=== PATIENT | female | born 1950 | race Caucasian/White ===

== ENCOUNTER 2016-07-10 10:13 | Emergency (ER) | payer SELFPAY ==
[2016-07-10 11:10] LABS: % IMMATURE GRANULYOCYTES 0.4 % (0.0-1.1); ABSOLUTE IMMATURE GRANULOCYTES 0.03 10^3/uL (0.00-0.10); ADD DIFF? NO; ADD MORPH? NO; ADD SCAN? NO; ATYPICAL LYMPHOCYTE FLAG 0 (0-99); FRAGMENT RBC FLAG 0 (0-99); HEMATOCRIT 44.2 % (38.0-47.0); HEMOGLOBIN 14.7 g/dL (12.6-16.3); LEFT SHIFT FLG 0 (0-99); LIPEMIA HEMOLYSIS FLAG 80 (0-99); MEAN CELL HEMOGLOBIN 29.9 pg (27.9-34.1); MEAN CELL HEMOGLOBIN CONCENTR. 33.3 g/dL (32.4-36.7); MEAN CELL VOLUME 89.8 fL (81.5-99.8); MEAN PLATELET VOLUME 10.3 fL (8.7-11.7); PLATELET CLUMPS FLAG 20 (0-99); PLATELET COUNT 272 10^3/uL (150-400); RED BLOOD CELL COUNT 4.92 10^6/uL (4.18-5.33); RED CELL DISTRIBUTION WIDTH 13.6 % (11.5-15.2)
[2016-07-10 11:16] LABS: ANION GAP 11 mEq/L (8-16); CARBON DIOXIDE 26 mEq/l (22-31); CHLORIDE 105 mEq/L (97-110); CREATININE 0.9 mg/dL (0.6-1.0); GLOMERULAR FILTRATION RATE > 60; GLUCOSE 116 mg/dL (70-100); POTASSIUM 4.2 mEq/L (3.5-5.2); SODIUM 142 mEq/L (134-144)
[2016-07-10] MEDS ORDERED: FAMOTIDINE 20 MG/2 ML SDV IVP ONE (11:24)
--- NOTE | 2016-07-10 11:29 | EDPHY ---
H & P Stated Complaint: chronic Hpylori, black stool, abd pain, been taking pepto Time Seen by Provider: 07/10/16 11:10 HPI/ROS: HPI: 65-year-old female presents to emergency department with chief concern abdominal pain, loose black stools. Symptoms onset a year ago. Developed acute abdominal discomfort in March. Tested positive for H pylori and treated with a total of 5 weeks of antibiotics and Flagyl. Finish course 2 days ago. Abdominal discomfort improved minimally. Reports soft stools, 6/10 generalized abdominal discomfort associated with bloating, worse on the left side, urinary frequency, nausea. Denies fever, chills, URI symptoms, dizziness , shortness of breath, chest pain, vomiting, diarrhea, urinary burning, back or flank pain, hematochezia, melena. 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 No personal history of GI disorders. Family history of ulcer. ROS:10 point review of systems is negative other than as stated in HPI Source: Patient Exam Limitations: No limitations - Personal History Current Tetanus/Diphtheria Vaccine: Yes Current Tetanus Diphtheria and Acellular Pertussis (TDAP): Yes Tetanus Vaccine Date: WITHIN 10 YRS - Medical/Surgical History Hx Asthma: No Hx Chronic Respiratory Disease: No Hx Diabetes: No Hx Cardiac Disease: No Hx Renal Disease: No Hx Cirrhosis: No Hx Alcoholism: No Hx HIV/AIDS: No Hx Splenectomy or Spleen Trauma: No Other PMH: pmh: hypothyroid, C/S. psh:high cholesterol, eye surgery - Family History Significant Family History: No pertinent family hx - Social History Smoking Status: Never smoked Alcohol Use: Rarely Drug Use: None - Physical Exam Exam: Vital signs reviewed by me General: Awake, alert, calm, cooperative. No acute distress. Head: Normalocephalic. Atraumatic. EENT: PERRLA. EOMI. No pallor or injection. Anicteric. No nystagmus. No injection. Neck: Supple, nontender. No lymphadenopathy. Full range of motion. No meningismus. Respiratory: Breathing unlabored. Breath sounds equal bilaterally and clear to auscultation. No adventitious sounds. CV: Chest nontender, atraumatic. Heart rate regular. No murmur, distal pulses 2+ bilaterally. Brisk cap refill all extremities. GI: Abdomen soft, diffusely tender throughout, worse left lower quadrant, right upper quadrant. No guarding. Negative Rubio sign. Bowel sounds normoactive and positive x4 quadrants. : No suprapubic tenderness. No CVA or flank tenderness. Neuro: Alert. Oriented x 3. Speech clear. Nonfocal cranial nerves throughout. Sensation intact all extremities. Skin: Skin warm, dry, intact. No rashes, abrasions, or lacerations. Skin turgor normal. Extremities: Full range of motion in all 4 extremities. Strength 5+ all extremities. Constitutional: Initial Vital Signs Temperature (C) 36.5 C 07/10/16 10:21 Heart Rate 83 07/10/16 10:21 Respiratory Rate 16 07/10/16 10:21 Blood Pressure 174/123 H 07/10/16 10:21 O2 Sat (%) 95 07/10/16 10:21 O2 Delivery Mode Room Air Allergies/Adverse Reactions: tetracycline [Tetracycline] Allergy (Verified 05/12/14 10:18) Home Medications: Medication Instructions Recorded Armor Thyroid 03/28/12 Atorvastatin Calcium [Lipitor 10 10 mg PO DAILY 03/28/12 mg (RX)] LORazepam [Ativan intensol 2 mg/ml 1 mg PO 03/28/12 (RX)] Natural Hrt 03/28/12 Fluconazole [Diflucan] 150 mg PO ONCE #1 tab 05/12/14 Triazolam [Halcion 0.25MG (RX)] 0.25 mg PO HS PRN #4 tab 05/12/14 Medical Decision Making - Diagnostics Imaging Results: Imaging Impressions Abdomen CT 07/10/16 11:23 Impression: 1. Constipation. 2. Chronic steatosis of the liver. 3. Progressive lumbar spondylosis between L4 and S1. 4. Incidental fibrous dysplasia of the sacrum. A message was left for Rosie Jefferson NP, at 07/10/2016 13:02 General information for patients regarding this examination can be found at [email or web address]. If you have questions or comments about this report, please contact me at (hospital) or [phone] (cell). Imaging: Discussed imaging studies w/ wood experimental mechanic Radiologist ED Course/Re-evaluation: A 65-year-old female presents to emergency department with abdominal pain that has been present intermittently for a year, more acutely over the past 3 months. Black stools began at the same time she started taking Pepto-Bismol. Recently finished antibiotic therapy and Flagyl for H pylori. She is being worked up by primary care for this chief concern. Reports loose stools but denies diarrhea. White count 7970. H&H 14.7/44.2. Stool for occult blood is negative. BUN and creatinine within normal. She has a chronically elevated AST/ALT due to chronic steatosis. Urinalysis shows no evidence of UTI. Stool panel is negative. CT is negative for findings that would not explain her abdominal pain. I have counseled this patient regarding her findings and need for prompt follow- up with primary care as well as GI. She and her are comfortable with this plan. They verbalized understanding and agreed to follow up. Differential Diagnosis: Differential diagnosis includes but is not limited to dyspepsia, C diff, irritable bowel, bowel obstruction, diverticulitis, UTI, ulcer, colitis - Data Points Laboratory Results: Laboratory Results 07/10/16 10:41 07/10/16 10:41 07/10/16 07/10/16 07/10/16 11:25 11:15 10:41 WBC RBC Hgb Hct MCV MCH MCHC RDW Plt Count MPV Neut % (Auto) Lymph % (Auto) [place] % (Auto) Eos % (Auto) Baso % (Auto) Nucleat RBC Rel Count Absolute Neuts (auto) Absolute Lymphs (auto) Absolute Monos (auto) Absolute Eos (auto) Absolute Basos (auto) Absolute Nucleated RBC Immature Gran % Immature Gran # Sodium Potassium Chloride Carbon Dioxide Anion Gap BUN Creatinine Estimated GFR Glucose Calcium Phosphorus Total Bilirubin 0.7 mg/dL mg/dL (0.1-1.4) Conjugated Bilirubin 0.5 mg/dL mg/dL (0.0-0.5) Unconjugated Bilirubin 0.2 mg/dL mg/dL (0.0-1.1) AST 74 IU/L H IU/L (14-46) ALT 80 IU/L H IU/L (9-52) Alkaline Phosphatase 76 IU/L IU/L (38-126) Total Protein 7.6 g/dL g/dL (6.3-8.2) Albumin 4.7 g/dL g/dL (3.5-5.0) Urine Color PALE YELLOW Urine Appearance CLEAR Urine pH 8.0 H (5.0-7.5) Ur Specific [place] 1.003 (1.002-1.030) Urine Protein NEGATIVE (NEGATIVE) Urine Ketones NEGATIVE (NEGATIVE) Urine Blood NEGATIVE (NEGATIVE) Urine Nitrate NEGATIVE (NEGATIVE) Urine Bilirubin NEGATIVE (NEGATIVE) Urine Urobilinogen NEGATIVE EU EU (0.2-1.0) Ur Leukocyte Esterase NEGATIVE (NEGATIVE) Urine Glucose NEGATIVE (NEGATIVE) Stool Occult Bld Scrn NEGATIVE (NEGATIVE) 07/10/16 07/10/16 10:41 10:41 WBC 7.97 10^3/uL 10^3/uL (3.80-9.50) RBC 4.92 10^6/uL 10^6/uL (4.18-5.33) Hgb 14.7 g/dL g/dL (12.6-16.3) Hct 44.2 % % (38.0-47.0) MCV 89.8 fL fL (81.5-99.8) MCH 29.9 pg pg (27.9-34.1) MCHC 33.3 g/dL g/dL (32.4-36.7) RDW 13.6 % % (11.5-15.2) Plt Count 272 10^3/uL 10^3/uL (150-400) MPV 10.3 fL fL (8.7-11.7) Neut % (Auto) 42.2 % % (39.3-74.2) Lymph % (Auto) 50.4 % H % (15.0-45.0) [place] % (Auto) 5.8 % % (4.5-13.0) Eos % (Auto) 0.8 % % (0.6-7.6) Baso % (Auto) 0.4 % % (0.3-1.7) Nucleat RBC Rel Count 0.0 % % (0.0-0.2) Absolute Neuts (auto) 3.37 10^3/uL 10^3/uL (1.70-6.50) Absolute Lymphs (auto) 4.02 10^3/uL H 10^3/uL (1.00-3.00) Absolute Monos (auto) 0.46 10^3/uL 10^3/uL (0.30-0.80) Absolute Eos (auto) 0.06 10^3/uL 10^3/uL (0.03-0.40) Absolute Basos (auto) 0.03 10^3/uL 10^3/uL (0.02-0.10) Absolute Nucleated RBC 0.00 10^3/uL 10^3/uL (0-0.01) Immature Gran % 0.4 % % (0.0-1.1) Immature Gran # 0.03 10^3/uL 10^3/uL (0.00-0.10) Sodium 142 mEq/L mEq/L (134-144) Potassium 4.2 mEq/L mEq/L (3.5-5.2) Chloride 105 mEq/L mEq/L (97-110) Carbon Dioxide 26 mEq/l mEq/l (22-31) Anion Gap 11 mEq/L mEq/L (8-16) BUN 13 mg/dL mg/dL (7-23) Creatinine 0.9 mg/dL mg/dL (0.6-1.0) Estimated GFR > 60 Glucose 116 mg/dL H mg/dL (70-100) Calcium 11.0 mg/dL H mg/dL (8.5-10.4) Phosphorus 3.3 mg/dL mg/dL (2.5-4.5) Total Bilirubin Conjugated Bilirubin Unconjugated Bilirubin AST ALT Alkaline Phosphatase Total Protein Albumin Urine Color Urine Appearance Urine pH Ur Specific [place] Urine Protein Urine Ketones Urine Blood Urine Nitrate Urine Bilirubin Urine Urobilinogen Ur Leukocyte Esterase Urine Glucose Stool Occult Bld Scrn Microbiology Results: MICROBIOLOGY 07/10/16 11:25 Stool Gastrointestinal Tract Panel (PCR) - Final No Organism Detected 07/10/16 11:25 Stool Fecal Leukocyte Stain - Final Medications Given: Discontinued Medications Famotidine (Pepcid) 20 mg IVP EDNOW ONE Stop: 07/10/16 11:25 Last Admin: 07/10/16 11:37 Dose: 20 mg Morphine Sulfate (Morphine) 2 mg IVP EDNOW ONE Stop: 07/10/16 11:25 Last Admin: 07/10/16 11:37 Dose: 2 mg Departure - Departure Disposition: Home, Routine, Self-Care Clinical Impression: Abdominal pain Qualifiers: Abdominal location: generalized Qualified Code(s): R10.84 - Generalized abdominal pain Condition: Good Instructions: Abdominal Pain (ED) Additional Instructions: Plan: Please follow up with both your primary care provider within the next 1-2 days for recheck--When you call to schedule appointment, please let the office know you are an "ER follow up" appointment" Follow up with pipeline controller Dr. armin forbes she now can review your stool study results 20 follow-up Return for worsening symptoms Referrals: Lacey Bowie MD [Primary Care Provider] - As per Instructions Cecil Rios MD [Medical Doctor] - As per Instructions
[2016-07-10] MEDS ORDERED: IOPAMIDOL (ISOVUE-300) 100 ML BTL ONE (11:33)
[2016-07-10 11:45] LABS: ALBUMIN 4.7 g/dL (3.5-5.0); BILIRUBIN,TOTAL 0.7 mg/dL (0.1-1.4); BILIRUBIN-CONJUGATED 0.5 mg/dL (0.0-0.5); BILIRUBIN-UNCONJUGATED 0.2 mg/dL (0.0-1.1); TOTAL PROTEIN 7.6 g/dL (6.3-8.2)
[2016-07-10 11:46] LABS: COLOR PALE YELLOW; LEUKOCYTE ESTERASE,URINE NEGATIVE (NEGATIVE); NITRITE,URINE NEGATIVE (NEGATIVE)
[2016-07-10 13:04] VITALS: TEMP 98.1
[2016-07-10 13:49] VITALS: BP 141/85; PULSE 62; RESP 18; O2SAT 92
== END 2016-07-10 13:50 | disposition home or self-care (01) ==
DX: R10.84 Generalized abdominal pain (principal)
CPT/HCPCS: 96374; Q9967